=== PATIENT | female | born 1970 | race Caucasian/White ===

== ENCOUNTER → 2020-12-26 09:54 | Outpatient (CLI) | payer BC, SELFPAY ==
--- NOTE | 2020-12-26 10:10 | ECHOD_ITS ---
Reason For Study: Arrhythmia Procedure This was a 2D Doppler, Color Flow transthoracic echocardiogram. The exam was of adequate technical quality. Exam performed in department. Left Ventricle Normal LV size. Left ventricular systolic function is normal. The estimated ejection fraction is 65 %. No evidence for diastolic dysfunction. No regional wall motion abnormalities noted. Right Ventricle Normal RV size. Normal systolic function. Atria Normal left atrium. Normal right atrium. No doppler evidence for ASD. Mitral Valve There is no mitral annular calcification. Normal mitral valve. Trivial mitral valve insufficiency. Tricuspid Valve Normal tricuspid valve. Trivial tricuspid valve insufficiency. Right ventricular systolic pressure estimated to be 22 mmHg. Aortic Valve Trisinus/trileaflet aortic valve. Normal aortic valve. Pulmonic Valve The pulmonic valve is not well visualized. Great Vessels The aortic root is not well visualized. Pericardium/Pleural No pericardial effusion. MMode/2D Measurements & Calculations LVIDd: 3.9 cm IVSd: 0.96 cm LA dimension: 3.4 cm LVIDs: 2.2 cm LVPWd: 1.1 cm FS: 43.7 % LAV(MOD-bp): 21.1 ml LA A4 area: 10.2 cm2 RA A4 area: 10.9 cm2 LAV(MOD-bp) Indexed: 12.2 ml/m2 LAV(MOD-sp2): 21.9 ml LAV(MOD-sp4): 20.1 ml Time Measurements MV dec time: 0.29 sec Doppler Measurements & Calculations MV E max eze: 54.4 cm/sec Lat Peak E' Eze: 7.7 cm/sec Med Peak E' Eze: 7.9 cm/sec MV A max eze: 69.8 cm/sec E/E' lat: 7.1 E/E' med: 6.8 MV E/A: 0.78 MV V2 max: 75.9 cm/sec MV P1/2t max eze: 60.4 cm/sec Ao V2 max: 97.9 cm/sec MV max P.3 mmHg MV P1/2t: 72.7 msec Ao max P.8 mmHg MV V2 mean: 38.7 cm/sec MV dec slope: 243.2 cm/sec2 MV mean P.71 mmHg MVA(P1/2t): 3.0 cm2 MV V2 VTI: 19.9 cm LV V1 max: 79.6 cm/sec PA V2 max: 67.2 cm/sec TR max eze: 220.4 cm/sec LV V1 max P.5 mmHg TR max P.4 mmHg ECHO/Echo Complete Interpretation Summary Left ventricular systolic function is normal. The estimated ejection fraction is 65 %. Trivial mitral valve insufficiency. Trivial tricuspid valve insufficiency. Right ventricular systolic pressure estimated to be 22 mmHg. No evidence for diastolic dysfunction. Ordering Physician: Donnie Beckman Referring Physician: Geronimo Srivastava Performed By: Froilan Nguyen RCS
== END ==
PROVIDERS: PCP Preventive Medicine Occupational Medicine; Referring Provider Internal Medicine Cardiovascular Disease; Visit Provider Internal Medicine Cardiovascular Disease
DX: I49.1 Atrial premature depolarization (principal); I49.3 Ventricular premature depolarization; I47.1 Supraventricular tachycardia; E78.2 Mixed hyperlipidemia; I25.10 Atherosclerotic heart disease of native coronary artery without angina pectoris
CPT/HCPCS: 93306

== ENCOUNTER → 2022-01-16 | Outpatient (CLI) | payer BC, SELFPAY ==
[2022-01-16 12:20] LABS: AST(SGOT) 17 U/L (15-37); Alanine Aminotransfer ALT/SGPT 64 U/L (13-56); Albumin, Serum 3.8 g/dL (3.2-5.0); Alkaline Phosphatase 131 U/L (45-117); Bilirubin, Direct 0.14 mg/dL (0.00-0.30); Cholesterol 265 mg/dL (200); Globulin 3.7 g/dL (2.2-4.2); High Density Lipoprotein 46 mg/dL; Protein, Total 7.5 g/dL (6.4-8.2); Triglycerides 249 mg/dL; Very Low Density Lipoprotein 50 mg/dL (5-40)
== END | disposition home or self-care (01) ==
LOC: LAB 11:11
PROVIDERS: PCP Preventive Medicine Occupational Medicine; Visit Provider Internal Medicine Cardiovascular Disease
DX: E78.00 Pure hypercholesterolemia, unspecified (principal)
CPT/HCPCS: 36415; 80061; 80076

== ENCOUNTER → 2023-05-14 | Outpatient (CLI) | payer BC, SELFPAY ==
--- OUTSIDE RECORDS SUMMARY | 2023-05-14 06:29 | XMS RPT_ITS | CCD ---
Author Name Unknown Address [address] [place] [address] Organization [facility] Care Team Providers Care Stripper Apprentice Name Role Phone HEIDI LI V Unavailable Unavailable Cameron Macias Primary Care Provider Uzma Srivastava DO Primary Care Provider [phone] XIAO FUNK Attending Unavailable UZMA SRIVASTAVA Primary Care Unavailable GRAF KURTIS Referring Unavailable KURTIS LOMBARDO Attending Unavailable LOIDA CRANE Referring Unavailable UZMA SRIVASTAVA Primary Care Unavailable LOIDA CRANE Referring Unavailable UZMA SRIVASTAVA Primary Care Unavailable LOIDA CRANE Attending Unavailable UZMA SRIVASTAVA Primary Care Unavailable UZMA SRIVASTAVA DO Primary Care Physician [phone] AVA PEARSON Attending UnavailUZMA Kapoor DO Primary Care Unavailable Allergies Allergy Classification Reported Allergen(s) Allergy Type Date of Onset Reaction(s) Facility (1 source) HMG-CoA reductase inhibitor; Translations: [statins] Drug allergy Muscle pain (finding) [facility] [place] Medications Current Medications Medication Drug Class(es) Dates Sig (Normalized) Sig (Original) acetaminophen 325 mg / HYDROcodone bitartrate 5 mg oral tablet (1 source) Opioid Agonist Start: 08-17-2019 End: 08-18-2019 take 1 tablet by mouth every six hours as needed for pain HYDROcodone-acetam inophen (NORCO) 5-325 MG per tablet Indications: Sprain of left shoulder, unspecified shoulder sprain type, initial encounter Take 1 tablet by mouth every 6 hours as needed for Pain for up to 1 day. 4 tablet 0 08/17/2019 08/18/2019 Active amphetamine aspartate 5 mg / amphetamine sulfate 5 mg / dextroamphetamine saccharate 5 mg / dextroamphetamine sulfate 5 mg oral tablet (9 sources) Central Nervous System Stimulant Start: 10-25-2022 End: 01-23-2023 take 1 tablet by mouth once daily dextroamphetamine- amphetamine (ADDERALL) 20 mg tablet Indications: ADHD, predominantly inattentive type Take 1 tablet by mouth once daily for 30 days. Do not start before December 24, 2022. 30 tablet 0 12/24/2022 01/23/2023 Active Completed/Discontinued Medications Medication Drug Class(es) Dates Sig (Normalized) Sig (Original) aspirin 325 mg oral tablet (9 sources) Platelet Aggregation Inhibitor, Nonsteroidal Anti-inflammatory Drug take 1 tablet by mouth once daily aspirin 325 mg ORAL tablet Take 325 mg by mouth once daily. 0 Active Problems Active Problems Problem Classification Problem Date Documented Date Episodic/Chronic Attention-deficit, conduct, and disruptive behavior disorders (2 sources) Attention deficit hyperactivity disorder, predominantly inattentive type; Translations: [Attention-deficit hyperactivity disorder, predominantly inattentive type] Chronic Cardiac dysrhythmias (1 source) Palpitations 09-26-2020 Episodic Coronary atherosclerosis and other heart disease (1 source) Coronary arteriosclerosis 09-26-2020 Chronic Disorders of lipid metabolism (1 source) Hyperlipidemia 01-21-2019 Chronic Other connective tissue disease (1 source) Disorder of soft tissue; Translations: [Other specified soft tissue disorders] Episodic Other screening for suspected conditions (not mental disorders or infectious disease) (8 sources) Patient encounter status; Translations: [Encounter for screening mammogram for malignant neoplasm of breast] Onset: 04-18-2022 Episodic Residual codes; unclassified (1 source) Persistent insomnia; Translations: [Insomnia, unspecified] Episodic Unclassified (1 source) Unknown / UNK(Unknown) Onset: 11-05-2016 Unclassified (1 source) Sprain of left shoulder; Translations: [Sprain of left shoulder, unspecified shoulder sprain type, initial encounter] Unclassified (2 sources) Patient encounter status 09-26-2020 Past or Other Problems Problem Classification Problem Date Documented Date Episodic/Chronic Contraceptive and procreative management (9 sources) Oral contraception; Translations: [Encounter for surveillance of contraceptive pills] Onset: 03-12-2005 03-12-2005 Episodic Unclassified (1 source) PAIN/ANTHEM ALL Onset: 11-05-2016 Results Test Name Value Interpretation Reference Range Facil ity Vital Signs Date Time Vital Sign Value Performing Clinician Facility 04-18-2022 08:08-0500 Body height 162.6 cm Kurtis Chamizal PA-C Work Phone: [facility] 04-18-2022 08:08-0500 Body temperature 97.59 [degF] Kurtis Chamizal PA-C Work Phone: [facility] 04-18-2022 08:08-0500 Body weight 78.11 kg Kurtis Grupo PA-C Work Phone: [facility] 04-18-2022 08:08-0500 Diastolic blood pressure 82 mm[Hg] Kurtis Grupo PA-C Work Phone: [facility] 04-18-2022 08:08-0500 Heart rate 80 /min Kurtis Grupo PA-C Work Phone: [facility] 04-18-2022 08:08-0500 SaO2% (BldA) [Mass fraction] 99 % Kurtis Grupo PA-C Work Phone: [facility] 04-18-2022 08:08-0500 Systolic blood pressure 126 mm[Hg] Kurtis Grupo PA-C Work Phone: [facility] 04-08-2022 07:02-0500 Body height 162.6 cm Loida Port Crane JEWEL HOLE GAUGER.METER INSTALLER Work Phone: [facility] 04-08-2022 07:02-0500 Body weight 77.66 kg Loida Port Crane JEWEL HOLE GAUGER.METER INSTALLER Work Phone: [facility] 04-08-2022 07:02-0500 Diastolic blood pressure 80 mm[Hg] Loida Port Crane JEWEL HOLE GAUGER.METER INSTALLER Work Phone: [facility] 04-08-2022 07:02-0500 Systolic blood pressure 120 mm[Hg] Loida Royce JEWEL HOLE GAUGER.METER INSTALLER Work Phone: [facility] 08-17-2019 21:38-0400 Body Temperature 97.39 [degF] Curtis Baca [facility] [place], [place] 08-17-2019 21:38-0400 Body weight 78.47 kg Curtis Baca [facility], [place] 08-17-2019 21:38-0400 BP Diastolic 76 mm[Hg] Curtis [facility], [place] 08-17-2019 21:38-0400 BP Systolic 136 mm[Hg] [facility], [place] 08-17-2019 21:38-0400 Pulse (Heart Rate) 83 /min Curtis Martinez [facility], [place] 08-17-2019 21:38-0400 Pulse Oximetry 99 % [facility] [place] 08-17-2019 21:38-0400 Respiratory Rate 16 /min [facility] [place] Encounters Encounter Date Encounter Type Care Provider Facility Start: 10-03-2022 End: 10-03-2022 Patient encounter procedure Edgar Gonzalez MD Work Phone: [facility] Procedures Date Procedure Procedure Detail Performing Clinician Start: 05-16-2022 Colonoscopy uKrtis reis PAKgC Work Phone: Start: 04-18-2022 End: 04-18-2022 Mammography Loida Port Crane JEWEL HOLE GAUGER.C FLORICULTURIST Work Phone: Start: 09-15-2019 Mammography Loida Olga timo JEWEL HOLE GAUGER.METER INSTALLER Work Phone: Start: 08-17-2019 Radex shoulder compl ete minimum 2 views Curtis Baca Work Phone: History of thyroidectomy H/O thyroidectom y LERICA ROCK JEWEL HOLE GAUGER-METER INSTALLER Plan of Treatment Date Care Activity Detail Author Start: 05-17-2027 Colonoscopy COLONOSCOPY [facility] Start: 05-17-2027 COLORECTAL CANCER SCREENING COLORECTAL CANCER SCREENING [facility] Start: 04-18-2023 Mammography [facility] Start: 10-31-2022 Covid-19 Vaccine () Covid-19 Vaccine () [facility] Start: 10-31-2022 Influenza vaccination [facility] Start: 03-02-2022 DEPRESSION ASSESSMENT DEPRESSION ASSESSMENT [facility] Start: 10-31-2021 Influenza vaccination INFLUENZA (#1) [facility] Start: 02-22-2021 COVID-19 VACCINE (4 - Booster for Pfizer series) COVID-19 VACCINE (4 - Booster for Pfizer series) [facility] Start: 02-22-2021 COVID-19 VACCINE (4 - Pfizer series) COVID-19 VACCINE (4 - Pfizer series) [facility] Start: 09-14-2020 Mammography MAMMOGRAM [facility] Start: 2019 Influenza vaccination Flu vaccine (Season Ended) [place], [place] Start: 2018 SHINGRIX VACCINE (1 of 2) SHINGRIX VACCINE (1 of 2) [facility] Start: 10-04-2016 DIABETES SCREEN DIABETES SCREEN [facility] Start: 10-04-2016 Diabetes Screening Diabetes Screening [facility] Start: 2013 COLOGUARD (FIT-DNA) COLOGUARD (FIT-DNA) [facility] Start: 2013 Colonoscopy COLONOSCOPY [facility] Start: 2013 COLORECTAL CANCER SCREENING COLORECTAL CANCER SCREENING [facility] Start: [address] COLONOGRAPHY [facility] Start: 2013 FECAL OCCULT BLOOD FECAL OCCULT BLOOD [facility] Start: 2013 Lipid 1996 panel - Serum or Plasma Lipid Screening [facility] Start: 2013 LIPID SCREEN LIPID SCREEN [facility] Start: 2013 SIGMOIDOSCOPY SIGMOIDOSCOPY [facility] Start: 12-31-2012 HEPATITIS B (2 of 3 - 19+ 3-dose series) HEPATITIS B (2 of 3 - 19+ 3-dose series) [facility] Start: 12-31-2012 Hepatitis B Vaccine (2 of 3 - 19+ 3-dose series) Hepatitis B Vaccine (2 of 3 - 19+ 3-dose series) [facility] Start: 11-02-1987 Urine microalbumin profile [facility] Start: 1986 HEPATITIS C SCREENING HEPATITIS C SCREENING [facility] Start: 1986 HIV SCREENING HIV SCREENING [facility] Start: 1974 PNEUMOCOCCAL (1 - PCV) PNEUMOCOCCAL (1 - PCV) [facility] Start: 1974 Pneumococcal vaccination Pneumococcal Vaccine (1 - PCV) [facility] End: 05-08-2023 HARLEY SCREENING HARLEY SCREENING Radiology Routine Encounter for screening mammogram for breast cancer 1 Occurrences starting 04/08/2022 until 05/08/[address] [facility] Work Phone: Immunizations Immunization Date Immunization Notes Care Provider Shannan stackwarren 12-13-2013 influenza virus vacc ine, unspecified formulation Loida Royce JEWEL HOLE GAUGER.METER INSTALLER Work Phone: [facility] 12-15-2012 influenza virus vacc ine, unspecified formulation Loida Royce JEWEL HOLE GAUGER.METER INSTALLER Work Phone: [facility] 12-03-2012 hepatitis B vaccine, adult dosage Loida Port Crane JEWEL HOLE GAUGER.METER INSTALLER Work Phone: [facility] 12-03-2012 hepatitis B vaccine, unspecified formulation Loida Port Crane JEWEL HOLE GAUGER.METER INSTALLER Work Phone: [facility] Payers Date Payer Category Payer Unknown [employer] PPO [id number] 2022-Present [phone] [address] [place] [id number] PPO [id number] 2022 Unknown [id number] 1970 Unknown [id number] Unknown [id number] Social History Date Type Detail Facility Start: 11-22-2018 End: 08-17-2019 Tobacco smoking status OKIS Former smoker [facility] Start: 08-17-2019 Alcohol intake Lifetime non-d martin (finding) [place], [place] Start: 08-17-2019 History SDOH Alcohol Frequency 1 [place], [place] Start: 1970 Sex Assigned At Not on file [place], [place] Exposure to SARS-CoV -2 (event) Unable to assess [place], [place] Start: 04-08-2022 Tobacco smoking stat us OKIS Occasional tobacco smoker [facility] Work Phone: History of tobacco use Cigarette Smoker C [facility] Work Phone: Start: 04-08-2022 Tobacco use and exposure Smokeless tobacco non-user [facility] Work Phone: Start: 04-08-2022 End: 04-18-2022 Alcohol intake Current drinker of alcohol (finding) [facility] Start: 04-08-2022 Tobacco Comment social smoker [facility] Start: 09-11-2016 Alcohol Comment occasionally [facility] Sex Assigned At Sex [facility] Start: 04-08-2022 End: 10-03-2022 History of Social function [facility] Start: 04-08-2022 End: 10-03-2022 Tobacco use panel [facility] National Score (1-100), lower number is lower risk 63 [facility] Clinical Notes 04-08-2022 to 10-03-2022 Edgar Gonzalez MD - 10/03/2022 9:40 AM EDTPatient InstructionsMichael MD Lisa - 07/04/2022 11:00 AM EDTPatient InstructionsTelephone Encounter - Mercedes AlbaradoAURORA - 05/27/2022 4:06 PM EDT Note Date & Type Note Facility 10-03-2022 History of Present illness Narrative Patient: Sabine Boss Date of Service: October 03, 2022 CHEIF COMPLANT: Stable Decreased Adderall Had to decrease adderall to 20 mg daily SUBJECTIVE REPORT AND INTERVAL HISTORY CHANGES SINCE LAST ENCOUNTER REVEALED: Patient is compliant with medications No adverse reactions to medications No recent stress or change Denied suicidal Ideation Denied homicidal Ideation Denied hallucinations Denied delusions REVIEW OF SYMPTOMS: ADHD:Denies active or subtle symptoms Depression:Denies any depressive symptoms Marielle: Denies any symptoms of hypomanic or manic episodes. Psychosis: Denies any auditory / visual hallucination or paranoid ideation. Panic attacks:Denied symptoms suggestive of panic attacks NINA: Denies any symptoms of NINA OCD: Denies any symptoms of OCD. PTSD: Denies any PTSD symptoms. Current Outpatient Medications on File Prior to Visit Medication Sig dextroamphetamine-amphetamine (ADDERALL) 20 mg tablet Take 1 tablet by mouth twice daily for 30 days. dextroamphetamine-amphetamine (ADDERALL) 20 mg tablet Take 1 tablet by mouth twice daily for 30 days. Do not start before August 03, 2022. dextroamphetamine-amphetamine (ADDERALL) 20 mg tablet Take 1 tablet by mouth twice daily for 30 days. Do not start before September 02, 2022. dilTIAZem CD (CARDIZEM CD) 240 mg 24 hr capsule Take 1 capsule by mouth once daily. estrogens conjugated (PREMARIN) 0.625 mg tablet Take 1 tablet by mouth once daily. CALCIUM CARBONATE/VITAMIN D3 (VITAMIN D-3 ORAL) Take by mouth. atorvastatin (LIPITOR) 10 mg tablet Take 80 mg by mouth once daily. aspirin 325 mg ORAL tablet Take 325 mg by mouth once daily. No current facility-administered medications on file prior to visit. LABS: Available labs were reviewd MEDICAL RECORDS: Electronic and paper records were reviewed [employer] REPORTING SYSTEM: Reviewd MENTAL STATUS EXAMINATION: Appearance: Casually dressed Behavior: Behaves appropriately during the encounter, Pleasant and interactive Orientation: Person, Place, Time and Situation Speech/Language: The patient demonstrates appropriate tone, prosody, sandra, phonetics, and syntax Mood/Affect: Appropriate Thought Form: Logical Thought Content: Coherent Suicidal Ideations: No suicidal ideation, intent or plan Homicidal Ideations: No homicidal ideation, intent or plan. Insight: Appropriate Judgment: Appropriate Memory/Cognition: Intact Psychomotor: Psychomotor activity was normal ASSESSMENT: Stable Decrease Adderall PLAN: 1. Medications:as per records Informed consent: is completed with the patient.Risk,benefits and alternative to the medication(s) recommended.Consent is given. 2. Supportive psychotherapy and psychopharmacological education are provided Signature: Edgar Gonzalez MD October 03, 2022 documented in this encounter [facility] 10-03-2022 Instructions Edgar Gonzalez MD - 10/03/2022 9:40 AM EDT Decrease Adderall to be 20 mg daily Follow up in 3 Months documented in this encounter [facility] 07-04-2022 History of Present illness Narrative Please refer to the paper chart located in the office for today's initial psychiatric evaluation. PHQ-9=6 documented in this encounter [facility] 07-04-2022 Instructions Edgar Gonzalez MD - 07/04/2022 11:00 AM EDT Re start Adderall 20 mg twice a day (5AM-12Noon) Continue Melatonin OTC Follow up in 3 Months documented in this encounter [facility] 05-27-2022 Miscellaneous Notes Called and updated patient, HM , history and recall letter done. Mercedes Albarado LPN ----- Message from Kurtis Lombardo PA-C sent at 05/27/2022 3:26 PM EDT ----- Please let patient know pathology showed a small tubular adenoma-benign, but premalignant type of polyp. Recommend repeat colonoscopy in 5 years for surveillance. Please update HM and surg history and generate recall letter documented in this encounter [facility] 04-20-2022 Miscellaneous Notes April 21, 2022 PID: [id number] Sabine Boss [id number] [place] [address] Dear Ms. Boss, We are pleased to inform you that the results of your recent breast imaging exam on 04/18/2022 are normal. Early detection of cancer is very important. We also understand recommendations regarding breast cancer screening are controversial. Please discuss with your primary care provider which strategy is best for you and whether a mammogram is right for you. Your imaging studies and report will be kept on file at [facility] as part of your permanent medical record and are available for your continuing care. Thank you for allowing us to help in meeting your health care needs. Sincerely, Dr. Gonzales Interpreting Radiologist [facility] (Normal over 40) documented in this encounter [facility] 04-18-2022 Note HNO ID: [id number] Author: Kurtis Lombardo PA-C Service: ? Author Type: Physician Test Desk Supervisor Type: Progress Notes Filed: 04/18/2022 8:37 AM Note Text: HISTORY AND PHYSICAL Sabine Boss 1970 REFERRING PHYSICIAN: Loida Crane APRN.CNP CHIEF COMPLAINT: Consult (COLONOSCOPY) HPI: The patient is a 51 year old female referred for endoscopy. Sabine notes no colon complaints. Patient denies any change in bowel habits, weight changes, blood in stools, black tarry stools or abdominal pain. Denies family history of colon issues. The patient notes no upper GI complaints. Sabine has not undergone prior endoscopy. Patient's past medical history is significant for palpitations for which she follows with Dr. Beckman and is maintained on cardizem. Patient states only problem she has had with sedation previously is versed makes me cry but tolerates it otherwise. PAST MEDICAL HISTORY Diagnosis Date Hypercholesteremia 09/2009 PAST SURGICAL HISTORY Procedure Laterality Date ARTHROSCOPY KNEE DIAGNOSTIC W/WO SYNOVIAL BX SPX Bilateral Arthroscopy, knee CHOLECYSTECTOMY Cholecystectomy LIG/TRNSXJ FLP TUBE ABDL/VAG APPR UNI/BI Tubal ligation OOPHORECTOMY PARTIAL/TOTAL UNI/BI Oophorectomy REMOVAL OF TONSILS,12+ Y/O RT HEART CATH 09/2009 THYROIDECTOMY TOTAL/COMPLETE Right TOTAL ABDOMINAL HYSTERECT W/WO RMVL TUBE OVARY Hysterectomy, SASCHA Current Outpatient Medications Medication Sig estrogens conjugated (PREMARIN) 0.625 mg tablet Take 1 tablet by mouth once daily. CALCIUM CARBONATE/VITAMIN D3 (VITAMIN D-3 ORAL) Take by mouth. atorvastatin (LIPITOR) 10 mg tablet Take 80 mg by mouth once daily. aspirin 325 mg ORAL tablet Take 325 mg by mouth once daily. No current facility-administered medications for this visit. ALLERGIES: Patient has no known allergies. PERSONAL HISTORY: Social History Tobacco Use Smoking status: Some Days Types: Cigarettes Smokeless tobacco: Never Tobacco comments: social smoker Vaping Use Vaping Use: Never used Substance Use Topics Alcohol use: Yes Comment: occasionally Drug use: No FAMILY HISTORY: FAMILY HISTORY Problem Relation Age of Onset Macular Degen Mother Hyperlipidemia Mother Hypertension Mother Coronary Artery Disease Father Diabetes Father Hypertension Father Cancer Sister Thyroid Cancer Diabetes Sister No Known Problems Brother No Known Problems Brother Diabetes Brother Cancer Maternal Grandmother KIDNEY Coronary Artery Disease Maternal Grandmother Coronary Artery Disease Paternal Grandmother No Known Problems Daughter No Known Problems Son REVIEW OF SYMPTOMS: The review of systems data was entered by the nurse and reviewed by in Nursing Notes: Victorina Macias LPN 04/18/2022 8:15 AM Signed REVIEW OF SYSTEMS: General: The patient denies fatigue, denies weight loss, denies weight gain, denies feeling hot, and denies feelings of cold. Eyes: The patient denies glaucoma, denies eye injury/surgery, wears glasses or contacts. Ear/Nose/Throat: The patient denies allergies, denies hayfever, denies ear infections, and denies bloody noses. Cardiovascular: The patient denies chest pain, NOTES heart disease, denies high blood pressure,denies cardiac stent, denies prior heart attack, NOTES irregular heart beat, NOTES high cholesterol, denies poor circulation, denies heart failure, other cardiac issues, denies claudication, denies cold feet, denies peripheral arterial stent. Respiratory: The patient denies tuberculosis, denies pneumonia, denies frequent cough, denies pulmonary embolism, denies shortness of breath, and denies coughing up blood. Gastrointestinal: The patient denies difficulty swallowing, denies acid reflux, denies ulcers, denies vomiting, denies jaundice/hepatitis, denies gallbladder problems, denies black or tarry stools, NOTES hemorrhoids, denies bleeding from rectum, denies diverticulitis, denies constipation, denies diarrhea, denies loss of stool control, and denies hernias. Kidney/Bladder: The patient NOTES kidney stones, denies urine infections, and denies bloody urine. Skin: The patient denies a history of skin cancer, denies bleeding/changing moles, and denies a history of skin rash. Neurologic: The patient denies a history of epilepsy/convulsions, denies headaches, denies head/spinal injuries, and denies stroke/TIA. Psychiatric: The patient denies psychiatric medications, denies depression, and denies voices, denies substance abuse. Endocrine: The patient denies thyroid disorders, denies diabetes, and denies hormonal problems. Hematologic: The patient denies a history of bruising, denies bleeding, and denies anemia, denies blood clots. Infections: The patient denies a history of measles and mumps, denies rheumatic fever, and denies sexually transmitted diseases. Musculoskeletal: The patient denies back pain/injury, NOTES back problems, denie (more content not included)... [facility] 04-18-2022 Note HNO ID: [id number] Author: RT Ankita(R) Service: ? Author Type: Technologist Type: Progress Notes Filed: 04/18/2022 7:17 AM Note Text: Radiology Service Progress Note PATIENT NAME: Sabine Boss DATE OF SERVICE: April 18, 2022 TIME: 7:03 AM PATIENT IDENTITY VERIFICATION COMPLETED USING TWO (2) IDENTIFIERS: Name and Date of confirmed by patient verbally. FALL SCREENING: Has the patient had 2 falls in the last year or 1 fall with injury or currently using an Ambulatory Assistive Device (Walker, Cane, Wheelchair, Crutches, etc.)? No PATIENT GENDER DATA: Female. status: : No status: NO. PATIENT RELEVANT IMPLANT DATA REVIEWED: Not Applicable RADIOLOGY DEPARTMENT: Mammography PERIPHERAL IV DATA: Not applicable SIGNED BY: RT Ankita(R) April 18, 2022 7:03 AM [facility] 04-18-2022 History of Present illness Narrative HISTORY AND PHYSICAL Sabine Boss 1970 REFERRING PHYSICIAN: Loida Crane APRN.CNP CHIEF COMPLAINT: Consult (COLONOSCOPY) HPI: The patient is a 51 year old female referred for endoscopy. Sabine notes no colon complaints. Patient denies any change in bowel habits, weight changes, blood in stools, black tarry stools or abdominal pain. Denies family history of colon issues. The patient notes no upper GI complaints. Sabine has not undergone prior endoscopy. Patient's past medical history is significant for palpitations for which she follows with Dr. Beckman and is maintained on cardizem. Patient states only problem she has had with sedation previously is versed makes me cry but tolerates it otherwise. PAST MEDICAL HISTORY Diagnosis Date Hypercholesteremia 09/2009 PAST SURGICAL HISTORY Procedure Laterality Date ARTHROSCOPY KNEE DIAGNOSTIC W/WO SYNOVIAL BX SPX Bilateral Arthroscopy, knee CHOLECYSTECTOMY Cholecystectomy LIG/TRNSXJ FLP TUBE ABDL/VAG APPR UNI/BI Tubal ligation OOPHORECTOMY PARTIAL/TOTAL UNI/BI Oophorectomy REMOVAL OF TONSILS,12+ Y/O RT HEART CATH 09/2009 THYROIDECTOMY TOTAL/COMPLETE Right TOTAL ABDOMINAL HYSTERECT W/WO RMVL TUBE OVARY Hysterectomy, SASCHA Current Outpatient Medications Medication Sig estrogens conjugated (PREMARIN) 0.625 mg tablet Take 1 tablet by mouth once daily. CALCIUM CARBONATE/VITAMIN D3 (VITAMIN D-3 ORAL) Take by mouth. atorvastatin (LIPITOR) 10 mg tablet Take 80 mg by mouth once daily. aspirin 325 mg ORAL tablet Take 325 mg by mouth once daily. No current facility-administered medications for this visit. ALLERGIES: Patient has no known allergies. PERSONAL HISTORY: Social History Tobacco Use Smoking status: Some Days Types: Cigarettes Smokeless tobacco: Never Tobacco comments: social smoker Vaping Use Vaping Use: Never used Substance Use Topics Alcohol use: Yes Comment: occasionally Drug use: No FAMILY HISTORY: FAMILY HISTORY Problem Relation Age of Onset Macular Degen Mother Hyperlipidemia Mother Hypertension Mother Coronary Artery Disease Father Diabetes Father Hypertension Father Cancer Sister Thyroid Cancer Diabetes Sister No Known Problems Brother No Known Problems Brother Diabetes Brother Cancer Maternal Grandmother KIDNEY Coronary Artery Disease Maternal Grandmother Coronary Artery Disease Paternal Grandmother No Known Problems Daughter No Known Problems Son REVIEW OF SYMPTOMS: The review of systems data was entered by the nurse and reviewed by in Nursing Notes: Victorina Macias LPN 04/18/2022 8:15 AM Signed REVIEW OF SYSTEMS: General: The patient denies fatigue, denies weight loss, denies weight gain, denies feeling hot, and denies feelings of cold. Eyes: The patient denies glaucoma, denies eye injury/surgery, wears glasses or contacts. Ear/Nose/Throat: The patient denies allergies, denies hayfever, denies ear infections, and denies bloody noses. Cardiovascular: The patient denies chest pain, NOTES heart disease, denies high blood pressure,denies cardiac stent, denies prior heart attack, NOTES irregular heart beat, NOTES high cholesterol, denies poor circulation, denies heart failure, other cardiac issues, denies claudication, denies cold feet, denies peripheral arterial stent. Respiratory: The patient denies tuberculosis, denies pneumonia, denies frequent cough, denies pulmonary embolism, denies shortness of breath, and denies coughing up blood. Gastrointestinal: The patient denies difficulty swallowing, denies acid reflux, denies ulcers, denies vomiting, denies jaundice/hepatitis, denies gallbladder problems, denies black or tarry stools, NOTES hemorrhoids, denies bleeding from rectum, denies diverticulitis, denies constipation, denies diarrhea, denies loss of stool control, and denies hernias. Kidney/Bladder: The patient NOTES kidney stones, denies urine infections, and denies bloody urine. Skin: The patient denies a history of skin cancer, denies bleeding/changing moles, and denies a history of skin rash. Neurologic: The patient denies a history of epilepsy/convulsions, denies headaches, denies head/spinal injuries, and denies stroke/TIA. Psychiatric: The patient denies psychiatric medications, denies depression, and denies voices, denies substance abuse. Endocrine: The patient denies thyroid disorders, denies diabetes, and denies hormonal problems. Hematologic: The patient denies a history of bruising, denies bleeding, and denies anemia, denies blood clots. Infections: The patient denies a history of measles and mumps, denies rheumatic fever, and denies sexually transmitted diseases. Musculoskeletal: The patient denies back pain/injury, NOTES back problems, denies sciatica, denies knee/foot trouble, denies arthritis, or denies gout. When was patient's last Mammogram screening? 04/24 Last Colonoscopy: no prior Victorina Macias LPN I have confirmed and edited as necessary, the PFSH and ROS obtained by others. Kurtis Lombardo PA-C PHYSICAL EXAMINATION: General: The patient is 51 year old female, well nourished, well hydrated in no acute distress. The patient is oriented to time, place, and person. VITALS: Blood pressure 126/82, pulse 80, temperature 36.4 C (97.6 F), height 162.6 cm (5' 4 ), weight 78.1 kg (172 lb 3.2 oz), SpO2 99 %. Body mass index is 29.56 kg/m . HEENT: Normal cephalic, ataumatic, pupils are equally round, sclera are anicteric, mucous membranes are moist, oropharynx is clear. Neck has no masses, asymmetry or lymphadenopathy. Respiratory: Clear to auscultation and percussion. Normal respiratory excursion and pattern. Cardiac: Examination is regular rate and rhythm. Normal S1/S2 Abdominal exam: Soft, nontender, with no palpable masses. No hepatosplenomegaly. No palpable hernias. Extremities: no clubbing, cyanosis or edema. No adenopathy. LABORATORY VALUES: As Noted RADIOLOGIC STUDIES: As Noted Assessment IMPRESSION: encounter for screening colonoscopy PLAN: I have reviewed my findings with the surgeon. Will plan for lower endoscopy. We discussed the risks and benefits of the planned endoscopy. I have informed the patient that complications can occur including failure to complete the endoscopy and perforation. The patient had the opportunity to ask questions concerning the planned endoscopy. My staff has also explained the procedure to the patient in understandable terms and has given the patient printed material concerning the procedure. The patient freely consents to surgery. The patient was offered a surgery/procedure at a [facility] facility. I have counseled the patient regarding the risk of exposure to and/or potential harm posed by the COVID-19 virus with having a surgery/procedure at this time versus the risk of delaying the surgery/procedure. It is not possible to know either the risk of delaying the surgery or procedure or chance of getting an infection with perfect accuracy, but a joint decision was made between the patient and myself to proceed at this time with endoscopy. I plan to use Golytely bowel preparation I have explained to the patient the difference between IV conscious sedation and MAC anesthesia - and I have offered either, according to the patient's wishes. I have explained that with IV conscious sedation there is no anesthesia provider available and therefore there is a limitation of the amount of IV medications that can be given and that the patient may wake up in the middle of the procedure and/or experience pain/discomfort during the procedure. Further discussion was done and the patient was given the opportunity to ask questions and all questions were answered. The patient chooses IV conscious sedation Diagnoses: (Z12.11) Encounter for screening colonoscopy Consultation requested by Loida Crane CNP for an opinion regarding screening colonoscopy. My final recommendations will be communicated back to the requesting physician by way of shared Medical record or letter to requesting physician via US mail. Kurtis Grupo, PA-C documented in this encounter [facility] 04-18-2022 Nurse Note REVIEW OF SYSTEMS: General: The patient denies fatigue, denies weight loss, denies weight gain, denies feeling hot, and denies feelings of cold. Eyes: The patient denies glaucoma, denies eye injury/surgery, wears glasses or contacts. Ear/Nose/Throat: The patient denies allergies, denies hayfever, denies ear infections, and denies bloody noses. Cardiovascular: The patient denies chest pain, NOTES heart disease, denies high blood pressure,denies cardiac stent, denies prior heart attack, NOTES irregular heart beat, NOTES high cholesterol, denies poor circulation, denies heart failure, other cardiac issues, denies claudication, denies cold feet, denies peripheral arterial stent. Respiratory: The patient denies tuberculosis, denies pneumonia, denies frequent cough, denies pulmonary embolism, denies shortness of breath, and denies coughing up blood. Gastrointestinal: The patient denies difficulty swallowing, denies acid reflux, denies ulcers, denies vomiting, denies jaundice/hepatitis, denies gallbladder problems, denies black or tarry stools, NOTES hemorrhoids, denies bleeding from rectum, denies diverticulitis, denies constipation, denies diarrhea, denies loss of stool control, and denies hernias. Kidney/Bladder: The patient NOTES kidney stones, denies urine infections, and denies bloody urine. Skin: The patient denies a history of skin cancer, denies bleeding/changing moles, and denies a history of skin rash. Neurologic: The patient denies a history of epilepsy/convulsions, denies headaches, denies head/spinal injuries, and denies stroke/TIA. Psychiatric: The patient denies psychiatric medications, denies depression, and denies voices, denies substance abuse. Endocrine: The patient denies thyroid disorders, denies diabetes, and denies hormonal problems. Hematologic: The patient denies a history of bruising, denies bleeding, and denies anemia, denies blood clots. Infections: The patient denies a history of measles and mumps, denies rheumatic fever, and denies sexually transmitted diseases. Musculoskeletal: The patient denies back pain/injury, NOTES back problems, denies sciatica, denies knee/foot trouble, denies arthritis, or denies gout. When was patient's last Mammogram screening? 04/24 Last Colonoscopy: no prior Victorina Macias LPN documented in this encounter [facility] 04-18-2022 History of Present illness Narrative Radiology Service Progress Note PATIENT NAME: Sabine Boss DATE OF SERVICE: April 18, 2022 TIME: 7:03 AM PATIENT IDENTITY VERIFICATION COMPLETED USING TWO (2) IDENTIFIERS: Name and Date of confirmed by patient verbally. FALL SCREENING: Has the patient had 2 falls in the last year or 1 fall with injury or currently using an Ambulatory Assistive Device (Walker, Cane, Wheelchair, Crutches, etc.)? No PATIENT GENDER DATA: Female. status: : No status: NO. PATIENT RELEVANT IMPLANT DATA REVIEWED: Not Applicable RADIOLOGY DEPARTMENT: Mammography PERIPHERAL IV DATA: Not applicable SIGNED BY: RT Ankita(R) April 18, 2022 7:03 AM documented in this encounter [facility] 04-08-2022 Note HNO ID: [id number] Author: Loida Crane APRN.METER INSTALLER Service: ? Author Type: Nurse Practitioner Type: Progress Notes Filed: 04/08/2022 7:35 AM Note Text: Sabine is a 51 year old who presents for an annual gynecologic exam . She would like to go back on Premarin- she is having vaginal dryness, weight gain, decrease libido. She states that she felt better when she was taking it. R/B reviewed pt verbalized understanding. 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 LMP: Hysterectomy Age at Menarche: Age at First : Age at Menopause: Toll Relief Operator History Comments: Sexual Activity: Yes; Male; HYSTERECTOMY Contraception: Surgical PAST MEDICAL HISTORY Diagnosis Date Hypercholesteremia 09/2009 PAST SURGICAL HISTORY Procedure Laterality Date ARTHROSCOPY KNEE DIAGNOSTIC W/WO SYNOVIAL BX SPX Bilateral Arthroscopy, knee CHOLECYSTECTOMY Cholecystectomy LIG/TRNSXJ FLP TUBE ABDL/VAG APPR UNI/BI Tubal ligation OOPHORECTOMY PARTIAL/TOTAL UNI/BI Oophorectomy REMOVAL OF TONSILS,12+ Y/O RT HEART CATH 09/2009 THYROIDECTOMY TOTAL/COMPLETE Right TOTAL ABDOMINAL HYSTERECT W/WO RMVL TUBE OVARY Hysterectomy, SASCHA FAMILY HISTORY Problem Relation Age of Onset Macular Degen Mother Hyperlipidemia Mother Hypertension Mother Coronary Artery Disease Father Diabetes Father Hypertension Father Cancer Sister Thyroid Cancer Diabetes Sister No Known Problems Brother No Known Problems Brother Diabetes Brother Cancer Maternal Grandmother KIDNEY Coronary Artery Disease Maternal Grandmother Coronary Artery Disease Paternal Grandmother No Known Problems Daughter No Known Problems Son SOCIAL HISTORY Social History Tobacco Use Smoking status: Some Days Types: Cigarettes Smokeless tobacco: Never Tobacco comments: social smoker Vaping Use Vaping Use: Never used Substance Use Topics Alcohol use: Yes Comment: occasionally Drug use: No REVIEW OF SYSTEMS Abdomen: No abdominal pain, nausea, vomiting, diarrhea, or constipation. No bloating, early satiety, indigestion, or increased flatulence. Bladder: No dysuria, gross hematuria, urinary frequency, +urinary urgency, + stress incontinence Breast: No breast lumps, nipple d/c, overlying skin changes, redness or skin retraction Allergies and current medication updated:Yes EXAM: Ht 5' 4 (1.63m) Wt 171 lb 3.2 oz (77.7kg) BMI 29.37 kg/(m2). GENERAL: pleasant, female in no apparent distress HEENT: Normocephalic, atraumatic, and no lesions NECK: Supple, full range of motion, no adenopathy, and thyroid normal DERMATOLOGY: Normal, without lesions, non-icteric, and non-hirsute BREAST: soft, non-tender, symmetric, no dominant mass, normal nipple-areolar complex, no lymphadenopathy, and no nipple discharge CHEST: Normal inspiratory effort ABDOMEN: soft, non-tender, and no masses PELVIC: external genitalia normal, normal Bartholin's glands, urethra, Stanaford's glands, no vulvar lesions, physiologic discharge present, normal appearing perineal body and perianal region, cervix surgically absent BIMANUAL: non-tender and uterus surgically absent RECTOVAGINAL: deferred. NEURO: alert and oriented x3,exam grossly non-focal EXTREMITIES: normal ASSESSMENT/PLAN: 1) Health maintenance: Pap/HPV screening no longer needed Mammogram ordered Nutrition, exercise and routine health maintenance exams reviewed. Calcium/Vitamin D supplementation information provided. Colon cancer screening: consult to general surgery 2) Follow up one year or sooner as needed Loida Crane APRN.[facility] 04-08-2022 History of Present illness Narrative Sabine is a 51 year old who presents for an annual gynecologic exam . She would like to go back on Premarin- she is having vaginal dryness, weight gain, decrease libido. She states that she felt better when she was taking it. R/B reviewed pt verbalized understanding. 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 History LMP: Hysterectomy Age at Menarche: Age at First : Age at Menopause: Toll Relief Operator History Comments: Sexual Activity: Yes; Male; HYSTERECTOMY Contraception: Surgical PAST MEDICAL HISTORY Diagnosis Date Hypercholesteremia 09/2009 PAST SURGICAL HISTORY Procedure Laterality Date ARTHROSCOPY KNEE DIAGNOSTIC W/WO SYNOVIAL BX SPX Bilateral Arthroscopy, knee CHOLECYSTECTOMY Cholecystectomy LIG/TRNSXJ FLP TUBE ABDL/VAG APPR UNI/BI Tubal ligation OOPHORECTOMY PARTIAL/TOTAL UNI/BI Oophorectomy REMOVAL OF TONSILS,12+ Y/O RT HEART CATH 09/2009 THYROIDECTOMY TOTAL/COMPLETE Right TOTAL ABDOMINAL HYSTERECT W/WO RMVL TUBE OVARY Hysterectomy, SASCHA FAMILY HISTORY Problem Relation Age of Onset Macular Degen Mother Hyperlipidemia Mother Hypertension Mother Coronary Artery Disease Father Diabetes Father Hypertension Father Cancer Sister Thyroid Cancer Diabetes Sister No Known Problems Brother No Known Problems Brother Diabetes Brother Cancer Maternal Grandmother KIDNEY Coronary Artery Disease Maternal Grandmother Coronary Artery Disease Paternal Grandmother No Known Problems Daughter No Known Problems Son SOCIAL HISTORY Social History Tobacco Use Smoking status: Some Days Types: Cigarettes Smokeless tobacco: Never Tobacco comments: social smoker Vaping Use Vaping Use: Never used Substance Use Topics Alcohol use: Yes Comment: occasionally Drug use: No REVIEW OF SYSTEMS Abdomen: No abdominal pain, nausea, vomiting, diarrhea, or constipation. No bloating, early satiety, indigestion, or increased flatulence. Bladder: No dysuria, gross hematuria, urinary frequency, +urinary urgency, + stress incontinence Breast: No breast lumps, nipple d/c, overlying skin changes, redness or skin retraction Allergies and current medication updated:Yes EXAM: Ht 5' 4 (1.63m) Wt 171 lb 3.2 oz (77.7kg) BMI 29.37 kg/(m^2). GENERAL: pleasant, female in no apparent distress HEENT: Normocephalic, atraumatic, and no lesions NECK: Supple, full range of motion, no adenopathy, and thyroid normal DERMATOLOGY: Normal, without lesions, non-icteric, and non-hirsute BREAST: soft, non-tender, symmetric, no dominant mass, normal nipple-areolar complex, no lymphadenopathy, and no nipple discharge CHEST: Normal inspiratory effort ABDOMEN: soft, non-tender, and no masses PELVIC: external genitalia normal, normal Bartholin's glands, urethra, Stanaford's glands, no vulvar lesions, physiologic discharge present, normal appearing perineal body and perianal region, cervix surgically absent BIMANUAL: non-tender and uterus surgically absent RECTOVAGINAL: deferred. NEURO: alert and oriented x3,exam grossly non-focal EXTREMITIES: normal ASSESSMENT/PLAN: 1) Health maintenance: Pap/HPV screening no longer needed Mammogram ordered Nutrition, exercise and routine health maintenance exams reviewed. Calcium/Vitamin D supplementation information provided. 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 Persistent disorder of initiating or maintaining sleep [facility]* Diagnosis ADHD, 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 [facility] Diagnosis Encounter for screening mammogram for breast cancer documented in this encounter [facility] Discharge instructions No data available for this section [facility] Progress note No data available for this section [facility] Reason for referral (narrative)* Diagnostic Procedure Only (Routine) - Closed Specialty Diagnoses / Procedures Referred By Fabiano flaherty Referred To Contact [facility] Diagnoses Encounter for screening mammogram for breast cancer Procedures HARLEY SCREENING SCREENING MAMMOGRAPHY BI 2-VIEW BREAST INC CAD Loida Crane APRN.CNP [address] [place] [address] [facility] [address] [place] [address] Referral ID Status Reason Start Date Expiration Date V isits Requested Visits Authorized [id number] Closed Auto-Generate d Referral 04/08/2022 05/08/2023 1 [facility] Diagnostic Procedure Only (Routine) - Closed Specialty Diagnoses / Procedures Referred By Fabiano flaherty Referred To Contact [facility] Diagnoses Encounter for screening mammogram for breast cancer Procedures HARLEY SCREENING SCREENING MAMMOGRAPHY BI 2-VIEW BREAST INC Loida Neumann APRN.CNP [address] [place] [address] [facility] [address] [place] [address] Referral ID Status Reason Start Date Expiration Date V isits Requested Visits Authorized [id number] Closed Auto-Generate d Referral 04/08/2022 05/08/2023 1 1 [facility] Summary Purpose Family History No Family History Records FoundNo Family History Records FoundNo Family History Records FoundNo Family History Records FoundNo Family History Records Found Advance Directives No Advanced Directives Records FoundNo Advanced Directives Records FoundNo Advanced Directives Records FoundNo Advanced Directives Records FoundNo Advanced Directives Records Found Discharge Instructions * Attachments The following attachments cannot be sent through Care Everywhere. * Shoulder Pain (Tongan) documented in this encounter Assessments Diagnosis Sprain of left shoulder, unspecified shoulder sprain type, initial encounter Reason for Referral Specialty Diagnoses / Procedures Referred By Fabiano flaherty Referred To Contact General Surgery Diagnoses Encounter for screening colonoscopy Procedures CONSULT TO GENERAL SURGERY OFFICE/OUTPATIENT [facility] MDM 60-74 MINUTES Loida Crane, FER.METER INSTALLER [address] [place] [address] Referral ID Status Reason Start Date Expiration Date Visits Requested Visits Authorized [id number] Authorized PCP Requested Referral 04/08/2022 04/08/2023 1 1 Specialty Diagnoses / Procedures Referred By Fabiano flaherty Referred To Contact [facility] Diagnoses Encounter for screening mammogram for breast cancer Procedures HARLEY SCREENING SCREENING MAMMOGRAPHY BI 2-VIEW BREAST INC CAD Loida Crane, JEWEL HOLE GAUGER.METER INSTALLER [address] [place] [address] [facility] [address] [place] [address] Referral ID Status Reason Start Date Expiration Date Visits Requested Visits Authorized [id number] Authorized Auto-Generat ed Referral 04/08/2022 05/08/2023 1 1 Additional Source Comments INFORMATION SOURCE (unrecogn ized section and content) DATE CREATED AUTHOR AUTHOR'S ORGANIZ ATION 02/21/2019 [facility] [place] DATE CREATED AUTHOR AUTHOR'S ORGANIZ ATION 10/18/2019 [facility] DATE CREATED AUTHOR AUTHOR'S ORGANIZ ATION 05/31/2022 [facility] DATE CREATED AUTHOR AUTHOR'S ORGANMADI ATION 07/06/2022 [facility] ([place]) Reason for Visit (unrecogniz ed section and content) Reason Comments Yearly Exam Reason Comments Consult COLONOSCOPY Specialty Diagnoses / Procedures Referred By Fabiano flaherty Referred To Contact General Surgery Diagnoses Encounter for screening colonoscopy Procedures CONSULT TO GENERAL SURGERY OFFICE/OUTPATIENT [facility] MDM 60-74 MINUTES Loida Crane APRN.METER INSTALLER [address] [place] [address] Referral ID Status Reason Start Date Expiration Date V isits Requested Visits Authorized [id number] Closed PCP Requested Referral 04/08/2022 04/08/2023 1 1 Reason Comments Results colonoscopy Reason Comments Opened In Error Opened in error Reason Comments Initial Evaluation Source Comments (unrecognize d section and content) In the event this informatio n is protected by the Federal Confidentiality of Alcohol and Drug Abuse Patient Records regulations: The Federal rules restrict any use of the information to criminally investigate or prosecute any alcohol or drug abuse patient.[facility] the event this information is protected by the Federal Confidentiality of Alcohol and Drug Abuse Patient Records regulations: The Federal rules restrict any use of the information to criminally investigate or prosecute any alcohol or drug abuse patient.[facility] the event this information is protected by the Federal Confidentiality of Alcohol and Drug Abuse Patient Records regulations: The Federal rules restrict any use of the information to criminally investigate or prosecute any alcohol or drug abuse patient.[facility] the event this information is protected by the Federal Confidentiality of Alcohol and Drug Abuse Patient Records regulations: The Federal rules restrict any use of the information to criminally investigate or prosecute any alcohol or drug abuse patient.[facility] the event this information is protected by the Federal Confidentiality of Alcohol and Drug Abuse Patient Records regulations: The Federal rules restrict any use of the information to criminally investigate or prosecute any alcohol or drug abuse patient.[facility] the event this information is protected by the Federal Confidentiality of Alcohol and Drug Abuse Patient Records regulations: The Federal rules restrict any use of the information to criminally investigate or prosecute any alcohol or drug abuse patient.[facility] the event this information is protected by the Federal Confidentiality of Alcohol and Drug Abuse Patient Records regulations: The Federal rules restrict any use of the information to criminally investigate or prosecute any alcohol or drug abuse patient.[facility] the event this information is protected by the Federal Confidentiality of Alcohol and Drug Abuse Patient Records regulations: The Federal rules restrict any use of the information to criminally investigate or prosecute any alcohol or drug abuse patient.[facility] Care Teams (unrecognized sec tion and content) Stripper Apprentice Relationship Specialty Start Date End Date Uzma Srivastava DO PCP - General Family Medicine 03/29/14 Stripper Apprentice Relationship Specialty Start Date End Date Uzma Srivastava DO PCP - General Family Medicine 03/29/14 Stripper Apprentice Relationship Specialty Start Date End Date Uzma Srivastava DO PCP - General Family Medicine 03/29/14 Stripper Apprentice Relationship Specialty Start Date End Date Uzma Srivastava DO PCP - General Family Medicine 03/29/14 Stripper Apprentice Relationship Specialty Start Date End Date Uzma Srivastava DO PCP - General Family Medicine 03/29/14 Stripper Apprentice Relationship Specialty Start Date End Date Uzma Srivastava DO PCP - General Family Medicine 03/29/14 Stripper Apprentice Relationship Specialty Start Date End Date Uzma Srivastava DO PCP - General Family Medicine 03/29/14 FOR RECORDS PERTAINING TO PATIENTS WHO ARE OR HAVE BEEN ENROLLED IN A CHEMICAL DEPENDENCY/SUBSTANCEABUSE PROGRAM, SOME INFORMATION MAY BE OMITTED. This clinical summary was aggregated from multiple sources. Caution should be exercised in using it in the provision of clinical care. This summary normalizes information from multiple sources, and as a consequence, information in this document may materially change the coding, format and clinical context of patient data. In addition, data may be omitted in some cases. CLINICAL DECISIONS SHOULD BE BASED ON THE PRIMARY CLINICAL RECORDS. [facility]. provides no warranty or guarantee of the accuracy or completeness of information in this document.
[2023-05-14 10:13] LABS: AST(SGOT) 29 U/L (15-37); Alanine Aminotransfer ALT/SGPT 38 U/L (13-56); Alkaline Phosphatase 90 U/L (45-117); Bilirubin, Direct 0.17 mg/dL (0.00-0.30); Cholesterol 158 mg/dL (200); High Density Lipoprotein 51 mg/dL; Triglycerides 138 mg/dL; Very Low Density Lipoprotein 28 mg/dL (5-40)
--- NOTE | 2023-05-15 14:03 | STRESSREP_ITS ---
Stress Test Report Date: 05/14/2023 Procedure: Exercise tolerance test/imaging study Indications: Chest pain Consent: Per the patient Procedure: The patient exercised on a Cameron protocol for 9 minutes achieving a peak heart rate of 155 bpm (93% predicted maximal heart rate) with a peak blood pressure 174/68 mmHg and a peak MET capacity of 10.1 METs. The baseline ECG demonstrated sinus rhythm. The peak exercise ECG demonstrated no ischemic changes. Single PVC noted during exercise and in recovery. The functional capacity was considered very good. There was no complaint of chest discomfort during exercise or recovery. The examination was discontinued secondary to target heart rate being achieved. The patient was injected with 11.7 mCi of technetium 99m Cardiolite and subsequently rest SPECT Cardiolite nuclear imaging was obtained in the horizontal long, vertical long, and short axis views. Post-exercise, the patient was injected with 34.2 mCi of technetium 99m Cardiolite and subsequently stress SPECT Cardiolite nuclear imaging was obtained in the horizontal long, vertical long, and short axis views. A gated Cardiolite study at peak stress was obtained. Rest and stress SPECT Cardiolite nuclear imaging status post realignment, normalization, and attenuation correction, demonstrates the appearance of relative uniform tracer uptake and myocardial perfusion appearing within normal limits. There is end systolic thickening and brightening. The gated Cardiolite study demonstrates myocardial thickening and inward wall motion. The reported LVEF is 93%. Impression: 1. Technically adequate (percent predicted maximal heart rate greater than 85%) exercise tolerance test 2. Peak exercise ECG with no ischemic changes 3. There were no cardiac dysrhythmias pretest, during exercise, or recovery 4. Rest and stress SPECT Cardiolite nuclear imaging demonstrate relative uniform tracer uptake and myocardial perfusion appearing within normal limits. 5. The gated Cardiolite study reports an LVEF of 93%. This note was generated with [employer] software. It may contain incorrect words, spelling, and punctuation that were not noted in checking the note before signing.
== END | disposition home or self-care (01) ==
PROVIDERS: PCP Preventive Medicine Occupational Medicine; Referring Provider Nurse Practitioner Gerontology; Visit Provider Nurse Practitioner Gerontology
DX: R07.9 Chest pain, unspecified (principal); I25.10 Atherosclerotic heart disease of native coronary artery without angina pectoris; E78.2 Mixed hyperlipidemia
CPT/HCPCS: 36415; 78452; 80061; 80076; 93017; A9500; A4216